=== PATIENT | male | born 1980 | race Caucasian/White ===

== ENCOUNTER 2020-07-29 22:12 | Emergency (ER) | payer OTHER, SELFPAY ==
[2020-07-29 22:45] LABS: #Lymphocytes 1.2 thou/uL (1.20-3.40); #Monocytes 0.5 thou/uL (0.11-0.59); #Neutrophils 3.7 thou/uL (1.40-6.50); %Basophils 0.8 % (0.0-1.0); %Eosinophils 0.9 % (0.0-10.0); %Monocytes 8.3 % (0.0-10.0); Hemoglobin 13.6 g/dL (14.0-18.0); Mean Corpuscular HGB CONC 33.9 g/dL (32.0-36.0); Mean Corpuscular Hemoglobin 30.8 pg (27.0-31.0); Mean Platelet Volume 9.6 fL (7.4-10.4); Platelet Count 185 thou/uL (130-400); RBC Distribution Width 11.1 % (11.5-14.5); White Blood Cell (WBC) Count 5.4 thou/uL (4.8-10.8)
[2020-07-29 23:05] LABS: ALT (SGPT) 21 U/L (8-55); AST (SGOT) 22 U/L (5-34); Albumin 4.2 g/dL (3.5-5.0); Alkaline Phosphatase 69 U/L (40-110); Anion Gap 15 mmol/L (10-20); BUN (Urea Nitrogen) 13 mg/dL (8.9-20.6); Bilirubin, Total 0.4 mg/dL (0.2-1.2); Calc. Creatinine Clearance 0 mL/min (70-130); Calcium 8.9 mg/dL (7.8-10.44); Carbon Dioxide 24 mmol/L (22-29); Chloride 106 mmol/L (98-107); Estimated GFR-MDRD 87; Globulin 2.1 g/dL (2.4-3.5); Glucose 112 mg/dL (70-105); Potassium 3.3 mmol/L (3.5-5.1); Protein, Total 6.3 g/dL (6.0-8.3); Sodium 142 mmol/L (136-145)
[2020-07-29 23:44] LABS: Amphetamine Not Detected (NotDetected); Barbiturates Screen Not Detected (NotDetected); Benzodiazepine Screen Not Detected (NotDetected); Cocaine Metabolite Screen Not Detected (NotDetected); Medtox Control Line Valid? VALID (VALID); Methadone Not Detected (NotDetected); Methamphetamine Not Detected (NotDetected); Opiate Screen Not Detected (NotDetected); Oxycodone Screen Not Detected (NotDetected); Phencyclidine (PCP) Not Detected (NotDetected); THC/Cannabinoid Screen Detected (NotDetected); Tricyclic Screen Not Detected (NotDetected)
[2020-07-30 01:51] LABS: Troponin I Less than 0.010 ng/mL (< 0.028)
--- NOTE | 2020-07-30 07:59 | RAD ---
PORTABLE CHEST: Date: 07/29/2020 HISTORY: Possible overdose. FINDINGS: Heart size is upper limits. Mediastinal structures appear unremarkable. Lungs are clear of any focal infiltrative process. IMPRESSION: No acute changes. POS: OFF
== END 2020-07-30 02:03 | disposition home or self-care (01) ==
LOC: NAV ERS 22:12
DX: F12.929 Cannabis use, unspecified with intoxication, unspecified (principal)
CPT/HCPCS: 36415; 71045; 80053; 80306; 84484; 85025; 93005; 94760